=== PATIENT | male | born 1990 | race Hispanic/Latino ===

== ENCOUNTER 2023-03-14 15:29 | Emergency (ER) | payer OTHER ==
--- NOTE | 2023-03-14 16:43 | RAD REPORT ---
EXAM DESCRIPTION: RAD - Hand Right 3 View - 03/14/2023 4:28 pm CLINICAL HISTORY: Right hand pain status post injury FINDINGS: No fracture or dislocation is seen.
[2023-03-14] MEDS ORDERED: TETANUS & DIPHTHERIA TOX,ADULT 0.5 ML VIAL ONE (16:58)
[2023-03-14] MEDS ORDERED: IBUPROFEN 400 MG TAB ONE (16:58)
--- NOTE | 2023-03-14 16:58 | ER ---
Nurse's Notes [facility] Name: Gio Ring IV Age: 32 yrs Sex: Male : 1990 Arrival Date: 03/14/2023 Time: 15:29 Bed DX3 Private MD: Diagnosis: Cellulitis of right upper limb-hand Presentation: 03/14 15:48 Chief complaint: Patient states: something fell on my right hand at work Monday , it iw has been more swollen and red since then , is worried it's infected. Coronavirus screen: At this time, the client does not indicate any symptoms associated with coronavirus-19. Ebola Screen: Patient negative for fever greater than or equal to 101.5 degrees Fahrenheit, and additional compatible Ebola Virus Disease symptoms Patient denies exposure to infectious person. Patient denies travel to an Ebola-affected area in the 21 days before illness onset. No symptoms or risks identified at this time. Initial Sepsis Screen: Does the patient meet any 2 criteria? No. Patient's initial sepsis screen is negative. Does the patient have a suspected source of infection? No. Patient's initial sepsis screen is negative. Risk Assessment: Do you want to hurt yourself or someone else? Patient reports no desire to harm self or others. Onset of symptoms was March 11, 2023. 15:48 Method Of Arrival: Ambulatory iw 15:48 Acuity: KENNEY 4 iw Historical: - Allergies: 15:49 No Known Allergies; iw - Home Meds: 15:49 None [Active]; iw - PMHx: 15:49 Hypertensive disorder; iw - PSHx: 15:49 None; iw Assessment: 16:52 Reassessment: Patient is alert, oriented x 3, equal unlabored respirations, skin aa5 warm/dry/pink. 16:53 Reassessment: Awaiting provider to update pt about x-ray results.. aa5 Vital Signs: 15:48 BP 148 / 94; Pulse 75; Resp 16; Temp 98.4; Pulse Ox 99% on R/A; Weight 70.31 kg; Height iw 5 ft. 9 in. ; 15:48 Body Mass Index 22.89 (70.31 kg, 175.26 cm) iw ED Course: 15:30 Patient arrived in ED. mr 15:37 Gurpreet Adkins PA is PHCP. cp 15:37 Gary Solomon MD is Attending Physician. cp 15:49 Triage completed. iw 15:50 Arm band placed on. iw 16:29 XRAY Hand RIGHT 3 View In Process Unspecified. EDMS 17:05 No provider procedures requiring assistance completed. Patient did not have IV access iw during this emergency room visit. Administered Medications: 16:52 Drug: Tetanus-Diphtheria Toxoid IM Adult 0.5 ml {Chief Cook: [employer]. Exp: aa5 03/04/2024. Lot #: [id number]. } Route: IM; Site: left deltoid; 16:52 Drug: Ibuprofen PO 800 mg Route: PO; aa5 17:04 Drug: Amoxicillin-Clavulanate PO 875 mg Route: PO; iw 17:04 Drug: Trimethoprim-Sulfamethoxazole PO (160 mg-800 mg (DS) 1 tablet Route: PO; iw Outcome: 16:58 Discharge ordered by MD. cp 17:04 Discharged to home ambulatory. iw 17:04 Condition: stable 17:04 Discharge instructions given to patient, Instructed on discharge instructions, follow up and referral plans. Demonstrated understanding of instructions, follow-up care, medications, Prescriptions given X 3. 17:05 Patient left the ED. iw Signatures: Dispatcher [employer] EDIN Elisabeth Sanchez mr Latha Pineda RN BHARATH iw Malou English RN RN aa5 Gurpreet Adkins PA PA cp
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
[2023-03-14] MEDS ORDERED: SMZ./TMP. 800/160 MG TABLET ONE (17:09)
[2023-03-14] MEDS ORDERED: AMOX/K CLAV 875 MG TAB ONE (17:09)
[2023-03-14 17:12] VITALS: BP 148/94; TEMP 98.4; O2SAT 99
== END 2023-03-14 17:05 | disposition home or self-care (01) ==
LOC: ER 15:29
DX: L03.113 Cellulitis of right upper limb (principal); Z23 Encounter for immunization
CPT/HCPCS: 90714